=== PATIENT | female | born 2000 | race Caucasian/White ===

== ENCOUNTER 2018-02-07 16:47 | Emergency (ER) | payer BC ==
--- NOTE | 2018-02-07 17:02 | EDPHY ---
H & P Stated Complaint: vaginal itching Source: Patient Exam Limitations: No limitations - Personal History Current Tetanus/Diphtheria Vaccine: Yes Current Tetanus Diphtheria and Acellular Pertussis (TDAP): Yes - Medical/Surgical History Hx Asthma: Yes Hx Chronic Respiratory Disease: No Hx Diabetes: No Hx Cardiac Disease: No Hx Renal Disease: No Hx Cirrhosis: No Hx Alcoholism: No Hx HIV/AIDS: No Hx Splenectomy or Spleen Trauma: No Other PMH: ovarian cysts, frequent UTIs, R knee surgery, - Social History Smoking Status: Never smoked Time Seen by Provider: 02/07/18 16:58 HPI/ROS: HPI: This is a 17-year-old female who presents with Chief Complaint: Vaginal itching Location: Vaginal Quality: Itching Duration: 24 hr Signs and Symptoms: no fever, no nausea, no vomiting, no hematemesis, no blood in stool, no abdominal bloating, no diarrhea, no back pain, no urinary symptoms , no vaginal bleeding/discharge, no indigestion, no chest pain, no shortness of breath Timing: Acute, constant, worsening Severity: Mild Context: Patient is a student at [employer], presents with waking up last time with vaginal itching that essentially her up all night. This afternoon she started to experience mild burning with urination. She reports that she is sexually active with the same partner for the last several months. Uses condoms every time for protection during sexual intercourse. Patient reports that her last menstrual period was 01/20/2018. Modifying Factors: She purchase [id number] diaper cream with no relief of her symptoms. Comment: ROS: A comprehensive 10 system review of systems is otherwise negative aside from elements mentioned in the history of present illness. MEDICAL/SURGICAL/SOCIAL HISTORY: Medical history: ovarian cysts, frequent UTIs Surgical history: Right knee arthroscopy Social history: She is originally from [place], [place]. Never smoked. Family history noncontributory. CONSTITUTIONAL: Extremely well-appearing teenage white female, awake and alert , no obvious distress HEENT: Atraumatic and normocephalic, PERRL, EOMI. Nares patent; no rhinorrhea; no nasal mucosal edema. Tympanic membranes clear. Oropharynx clear, no exudate and moist pink mucosa. Airway patent. No lymphadenopathy. No meningismus. Cardiovascular: Normal S1/S2, regular rate, regular rhythm, without murmur rub or gallop. PULMONARY/CHEST: Symmetrical and nontender. Clear to auscultation bilaterally. Good air movement. No accessory muscle usage. ABDOMEN: Soft, nondistended, nontender, no rebound, no guarding, no peritoneal signs, no masses or organomegaly. No CVAT. PELVIC: normal external genitalia, normal cervix, cervical os was closed, no cervical motion tenderness, no adnexal mass, + thick yellowish discharge, no bleeding. The exam was performed with a district wildlife manager. Patient had mild-to- moderate distress during the exam. EXTREMITIES: 2/2 pulses, strength 5/5, no deformities, no clubbing, no cyanosis or edema. NEUROLOGICAL: no focal neuro deficits. GCS 15. SKIN: Warm and dry, no erythema. no rash. Good capillary refill. (Demetrice Ortiz) Constitutional: Initial Vital Signs Temperature (C) 36.5 C 02/07/18 16:53 Heart Rate 84 02/07/18 16:53 Respiratory Rate 16 02/07/18 16:53 Blood Pressure 113/69 02/07/18 16:53 O2 Sat (%) 95 02/07/18 16:53 O2 Delivery Mode Room Air Allergies/Adverse Reactions: No Known Allergies Allergy (Unverified 02/07/18 16:52) Home Medications: Medication Instructions Recorded Acidophilus 02/07/18 Fluconazole [Diflucan (*)] 150 mg PO ONCE #2 tab 02/07/18 Methenamine Haim 02/07/18 Valtrex 02/07/18 metroNIDAZOLE [Metrogel-Vaginal] 5 gm VG HS 5 Days gel.w.appl 02/07/18 Medical Decision Making ED Course/Re-evaluation: I did not see this patient while she was in the emergency department. However her care was discussed with the PA while the patient was in the department. I agree with treatment plan and management (Aden Trimble) Vital signs reviewed and stable upon arrival. No systemic signs. Urinalysis, urine , GC, wet mount, bacterial vaginosis swabs ordered + clue cells and yeast Given a prescription for Metrogel and Diflucan Patient understands that GC is pending and if it is possible she will be contacted by the emergency room. This patient was seen under the supervision of my secondary supervising physician. I evaluated care for this patient independently. Discussed this patient with Dr. Trimble who did not see the patient. (Demetrice Ortiz) Differential Diagnosis: Differential diagnosis includes but is not limited to bacterial vaginosis, gonorrhea, chlamydia, candidiasis, urinary tract infection, PID. (Demetrice Ortiz) - Data Points Laboratory Results: 02/07/18 02/07/18 02/07/18 17:55 17:55 17:25 Urine Color YELLOW Urine Appearance HAZY Urine pH 5.0 (5.0-7.5) Ur Specific [place] 1.025 (1.002-1.030) Urine Protein NEGATIVE (NEGATIVE) Urine Ketones NEGATIVE (NEGATIVE) Urine Blood NEGATIVE (NEGATIVE) Urine Nitrate NEGATIVE (NEGATIVE) Urine Bilirubin NEGATIVE (NEGATIVE) Urine Urobilinogen NEGATIVE EU EU (0.2-1.0) Ur Leukocyte Esterase 1+ H (NEGATIVE) Urine RBC 10-15 /hpf H /hpf (0-3) Urine WBC 15-25 /hpf H /hpf (0-3) Ur Epithelial Cells TRACE /lpf /lpf (NONE-1+) Urine Bacteria TRACE /hpf H /hpf (NONE SEEN) Urine Mucus 3+ /lpf H /lpf (NONE-1+) Urine Glucose NEGATIVE (NEGATIVE) Urine Test NEGATIVE Trichomonas (Wet Prep) CLUE CELLS PRESENT H Kellen species DNA POSITIVE H (NEGATIVE) C.trachomatis RNA (TMA) Gardnerella DNA Probe POSITIVE H (NEGATIVE) N.gonorrhoeae RNA (TMA) Trichomonas DNA Probe NEGATIVE (NEGATIVE) 02/07/18 17:25 Urine Color Urine Appearance Urine pH Ur Specific [place] Urine Protein Urine Ketones Urine Blood Urine Nitrate Urine Bilirubin Urine Urobilinogen Ur Leukocyte Esterase Urine RBC Urine WBC Ur Epithelial Cells Urine Bacteria Urine Mucus Urine Glucose Urine Test Trichomonas (Wet Prep) Kellen species DNA C.trachomatis RNA (TMA) Pending Gardnerella DNA Probe N.gonorrhoeae RNA (TMA) Pending Trichomonas DNA Probe Departure - Departure Disposition: Home, Routine, Self-Care Clinical Impression: Bacterial vaginitis, Kellen vaginitis Condition: Good Instructions: Bacterial Vaginosis (ED), Yeast Infection (ED), Pelvic Rest (ED) Additional Instructions: Please take all of the metronidazole gel intervaginal applicators nightly x5 days Please follow-up pelvic rest until all symptoms have resolved. [facility] with the [facility] and 5-7 days if no improvement in your symptoms. Referrals: EDWIN DODSON [Other] - As per Instructions Prescriptions: Fluconazole [Diflucan (*)] 150 mg PO ONCE #2 tab metroNIDAZOLE [Metrogel-Vaginal] 5 gm VG HS 5 Days gel.w.appl
[2018-02-07 18:38] VITALS: BP 124/67
[2018-02-08 12:26] LABS: GC AMPLIFICATION GENPROBE NEGATIVE (NEGATIVE)
== END 2018-02-07 18:38 | disposition home or self-care (01) ==
DX: N76.0 Acute vaginitis (principal); B37.3 Candidiasis of vulva and vagina; Z87.440 Personal history of urinary (tract) infections; Z87.42 Personal history of other diseases of the female genital tract